=== PATIENT | male | born 1945 | race Caucasian/White ===

== ENCOUNTER → 2018-08-31 | Outpatient (REF) | payer MEDICARE | LOC: M LAB LCGH 13:53 | PROVIDERS: ATTEND Surgery | DX: K42.9 Umbilical hernia without obstruction or gangrene (principal) ==

== ENCOUNTER 2022-07-22 09:45 | Day surgery (SDC) | payer MEDICARE, OTHER ==
[~2022-07-22] VITALS: Ht 179.1 cm; Wt 97.9 kg
[~2022-07-22 09:45] MED LIST: BREO1INH INH; BSS IRRIG/VANCO(10MG)/TOBRA(5MG)/EPINEPH(1:1000-0.5CC)500ML BAG-ORONLY IR ONE; CETI10CA2 PO; LIDOCAINE 1% SDV 5ML VIAL As Ordered ONE; LIDOCAINE 3.5 % 1ML OPHTH TOPICAL GEL OU ONE; LISI10TA22 PO; MIDAZOLAM INJ 2MG/2ML VIAL As Ordered ONE; MULTCAP PO; OFLOXACIN 0.3 % (OCUFLOX) OPTH SOL 5ML OD ONE; PHENYLEPHRINE 10% OPHTH SOL 5ML OD PRN; SERT-141 PO; SIMV40TA20 PO; VENTAER INH; VITA100093 PO; XARE10TA PO; XARE20TA PO; fentaNYL 100 MCG/2 ML INJECTION As Ordered ONE
[2022-07-22] MEDS: CYCLOPENTOLATE 1% OPHTH SOLN 2ML BTL OD SCH ×3 (10:47→11:08)
[2022-07-22] MEDS: TROPICAMIDE 1% OPHTH SOLN 15ML OD SCH ×3 (10:47→11:08)
[2022-07-22] MEDS: PHENYLEPHRINE 2.5% OPHTH SOL 2ML OD SCH ×3 (10:47→11:08)
[2022-07-22] MEDS ORDERED: CEFUROXIME 1MG/0.1ML INTRACAMERAL INJ As Ordered ONE (11:44)
[2022-07-22 12:25] VITALS: BP 161/72
== END 2022-07-22 10:43 | disposition home or self-care (01) ==
LOC: M SDC 09:45
PROVIDERS: ATTEND Ophthalmology
DX: H25.11 Age-related nuclear cataract, right eye (principal); I10 Essential (primary) hypertension; E78.5 Hyperlipidemia, unspecified; F41.9 Anxiety disorder, unspecified; F32.A Depression, unspecified; J45.909 Unspecified asthma, uncomplicated; R06.83 Snoring; G47.33 Obstructive sleep apnea (adult) (pediatric); M13.80 Other specified arthritis, unspecified site; Z79.899 Other long term (current) drug therapy; Z88.0 Allergy status to penicillin
CPT/HCPCS: 66984; J0697; J2250; J3010; V2632

== ENCOUNTER 2023-01-06 08:01 | Day surgery (SDC) | payer MEDICARE, OTHER ==
[~2023-01-06] VITALS: Ht 177.8 cm; Wt 98.9 kg
[~2023-01-06 08:01] MED LIST changes: +CYCLOPENTOLATE 1% OPHTH SOLN 2ML BTL OS SCH; -MIDAZOLAM INJ 2MG/2ML VIAL As Ordered ONE; -OFLOXACIN 0.3 % (OCUFLOX) OPTH SOL 5ML OD ONE; +OFLOXACIN 0.3 % (OCUFLOX) OPTH SOL 5ML OS ONE; -PHENYLEPHRINE 10% OPHTH SOL 5ML OD PRN; +PHENYLEPHRINE 10% OPHTH SOL 5ML OS PRN; +PHENYLEPHRINE 2.5% OPHTH SOL 2ML OS SCH; +TROPICAMIDE 1% OPHTH SOLN 15ML OS SCH; -fentaNYL 100 MCG/2 ML INJECTION As Ordered ONE
[2023-01-06] MEDS ORDERED: MIDAZOLAM INJ 2MG/2ML VIAL As Ordered ONE (08:07)
[2023-01-06] MEDS ORDERED: fentaNYL 100 MCG/2 ML INJECTION As Ordered ONE (08:07)
[2023-01-06 09:20] VITALS: BP 156/79; TEMP 97.2; O2SAT 93
== END 2023-01-06 09:40 | disposition home or self-care (01) ==
LOC: M SDC 08:01
PROVIDERS: ATTEND Ophthalmology
DX: H25.12 Age-related nuclear cataract, left eye (principal); G47.30 Sleep apnea, unspecified; I10 Essential (primary) hypertension; E78.00 Pure hypercholesterolemia, unspecified; Z79.899 Other long term (current) drug therapy; Z79.01 Long term (current) use of anticoagulants; Z87.891 Personal history of nicotine dependence; Z88.0 Allergy status to penicillin
CPT/HCPCS: 66984; J2250; J3010; V2632

== ENCOUNTER → 2023-06-22 | Outpatient (CLI) | payer MEDICARE ==
[~2023-06-22] MED LIST changes: -BSS IRRIG/VANCO(10MG)/TOBRA(5MG)/EPINEPH(1:1000-0.5CC)500ML BAG-ORONLY IR ONE; -CYCLOPENTOLATE 1% OPHTH SOLN 2ML BTL OS SCH; -LIDOCAINE 1% SDV 5ML VIAL As Ordered ONE; -LIDOCAINE 3.5 % 1ML OPHTH TOPICAL GEL OU ONE; -OFLOXACIN 0.3 % (OCUFLOX) OPTH SOL 5ML OS ONE; -PHENYLEPHRINE 10% OPHTH SOL 5ML OS PRN; -PHENYLEPHRINE 2.5% OPHTH SOL 2ML OS SCH; -TROPICAMIDE 1% OPHTH SOLN 15ML OS SCH
== END ==
LOC: M CARPUL 08:52
PROVIDERS: ATTEND Internal Medicine Pulmonary Disease
DX: R06.02 Shortness of breath (principal)

== ENCOUNTER → 2024-06-08 | Outpatient (REF) | LOC: M PLAIMG 09:11 | PROVIDERS: ATTEND Internal Medicine | DX: R06.02 Shortness of breath (principal) ==

== ENCOUNTER → 2024-11-08 | Outpatient (REF) | LOC: M PLAIMG 08:33 | PROVIDERS: ATTEND Internal Medicine | DX: R06.02 Shortness of breath (principal); R52 Pain, unspecified ==